=== PATIENT | male | born 1950 | race Caucasian/White ===

== ENCOUNTER → 2016-09-13 | Outpatient (CLI) | payer MEDICARE | LOC: NM 08:54 | DX: E11.43 Type 2 diabetes mellitus with diabetic autonomic (poly)neuropathy (principal); K21.9 Gastro-esophageal reflux disease without esophagitis | CPT/HCPCS: 78264; A9541 ==

== ENCOUNTER → 2016-11-16 | Outpatient (CLI) | payer MEDICARE, OTHER | LOC: MRI 10:18 | DX: H91.92 Unspecified hearing loss, left ear (principal); J32.0 Chronic maxillary sinusitis; H70.92 Unspecified mastoiditis, left ear | CPT/HCPCS: 36415; 70553; 82565; 84520; A9577 ==

== ENCOUNTER → 2021-05-15 | Outpatient (CLI) | payer MEDICARE ==
[~2021-05-15] MED LIST: APIDRA100 UNIT/1 SC; ASMANEX220 MC1 INH; ATORVASTATIN CA20 MG PO; AUGMENTIN 875-1 EACH PO; AVODART 0.5 MG0.5 MG PO; CLOPIDOGREL75 MG PO; ECOTRIN81 MG PO; FLOMAX0.4 MG PO; MICROZIDE12.5 MG PO; NEURONTIN 400400 MG PO; NORCO 10-325 T1 EACH PO; PRINIVIL20 MG PO; TOUJEO MAX300 UNIT/1 SC
== END ==
LOC: CT 13:46
DX: R31.9 Hematuria, unspecified (principal); N13.30 Unspecified hydronephrosis; N28.89 Other specified disorders of kidney and ureter
CPT/HCPCS: 51702; 80048; 81001; 85025; 96374; 96375; 99283; J2270; J2405

== ENCOUNTER 2021-05-16 13:44 | Emergency (ER) | payer MEDICARE ==
[2021-05-16 16:37] LABS: RED BLOOD COUNT 4.79 M/UL (4.20-5.50); WHITE BLOOD COUNT 8.1 K/UL (4.5-11.0)
== END 2021-05-16 18:45 | disposition left against medical advice (07) ==
LOC: ER1 13:44
PROVIDERS: Emergency Medicine
DX: N13.2 Hydronephrosis with renal and ureteral calculous obstruction (principal); D64.9 Anemia, unspecified; N19 Unspecified kidney failure; I25.10 Atherosclerotic heart disease of native coronary artery without angina pectoris; E11.9 Type 2 diabetes mellitus without complications; I25.2 Old myocardial infarction; J45.909 Unspecified asthma, uncomplicated; Z79.02 Long term (current) use of antithrombotics/antiplatelets; Z79.82 Long term (current) use of aspirin
CPT/HCPCS: 80053; 85025; 85610; 85730; 96374; 96375; 99281; A4340; J1170; J2405

== ENCOUNTER 2021-05-19 17:04 | Emergency (ER) | payer MEDICARE | END 2021-05-19 19:40 | disposition home or self-care (01) | LOC: ER1 17:04 | DX: T83.098A Other mechanical complication of other urinary catheter, initial encounter (principal); I25.2 Old myocardial infarction; E11.9 Type 2 diabetes mellitus without complications; I11.9 Hypertensive heart disease without heart failure; Z88.5 Allergy status to narcotic agent; Y83.8 Other surgical procedures as the cause of abnormal reaction of the patient, or of later complication, without mention of misadventure at the time of the procedure | CPT/HCPCS: 51702; 81001; 99283 ==

== ENCOUNTER 2021-05-19 23:44 | Emergency (ER) | payer MEDICARE | END 2021-05-20 00:22 | disposition home or self-care (01) | LOC: ER1 23:44 | DX: Z46.6 Encounter for fitting and adjustment of urinary device (principal); I25.10 Atherosclerotic heart disease of native coronary artery without angina pectoris; I10 Essential (primary) hypertension; E11.9 Type 2 diabetes mellitus without complications | CPT/HCPCS: 99283 ==

== ENCOUNTER 2021-05-21 17:45 | Emergency (ER) | payer MEDICARE | END 2021-05-21 18:34 | disposition home or self-care (01) | LOC: ER1 17:45 | DX: T83.098A Other mechanical complication of other urinary catheter, initial encounter (principal); I25.10 Atherosclerotic heart disease of native coronary artery without angina pectoris; E11.9 Type 2 diabetes mellitus without complications; E78.5 Hyperlipidemia, unspecified; Z88.5 Allergy status to narcotic agent; Y83.8 Other surgical procedures as the cause of abnormal reaction of the patient, or of later complication, without mention of misadventure at the time of the procedure | CPT/HCPCS: 99283 ==

== ENCOUNTER 2021-05-22 20:19 | Emergency (ER) | payer MEDICARE | END 2021-05-22 22:13 | disposition home or self-care (01) | LOC: ER1 20:19 | DX: T83.091A Other mechanical complication of indwelling urethral catheter, initial encounter (principal); R33.9 Retention of urine, unspecified | CPT/HCPCS: 81001; 99283 ==

== ENCOUNTER 2021-05-24 09:58 | Emergency (ER) | payer MEDICARE | END 2021-05-24 11:19 | disposition home or self-care (01) | LOC: ER1 09:58 | DX: R33.9 Retention of urine, unspecified (principal); I25.2 Old myocardial infarction; E11.9 Type 2 diabetes mellitus without complications; I10 Essential (primary) hypertension; Z88.5 Allergy status to narcotic agent | CPT/HCPCS: 99283 ==

== ENCOUNTER 2021-05-30 20:07 | Emergency (ER) | payer MEDICARE ==
[2021-05-30] MEDS ORDERED: OMNICEF 300 MG300 MG PO (21:47)
== END 2021-05-31 05:11 | disposition home or self-care (01) ==
LOC: ER1 20:07
DX: N40.1 Benign prostatic hyperplasia with lower urinary tract symptoms (principal); R33.8 Other retention of urine; N39.0 Urinary tract infection, site not specified; I25.2 Old myocardial infarction; E11.9 Type 2 diabetes mellitus without complications; E78.5 Hyperlipidemia, unspecified; Z88.5 Allergy status to narcotic agent
CPT/HCPCS: 51702; 81001; 87086; 99283

== ENCOUNTER → 2022-01-03 | Outpatient (CLI) | payer MEDICARE ==
[~2022-01-03] MED LIST changes: +OMNICEF 300 MG300 MG PO
== END ==
LOC: RAD 14:48
DX: M54.2 Cervicalgia (principal); M54.6 Pain in thoracic spine; M47.812 Spondylosis without myelopathy or radiculopathy, cervical region; M47.814 Spondylosis without myelopathy or radiculopathy, thoracic region
CPT/HCPCS: 72050; 72072

== ENCOUNTER → 2022-01-23 | Outpatient (CLI) | payer MEDICARE | LOC: LAB 15:01 | DX: R09.81 Nasal congestion (principal); Z20.822 Contact with and (suspected) exposure to COVID-19 | CPT/HCPCS: U0002 ==